=== PATIENT | female | born 1965 | race Caucasian/White ===

== ENCOUNTER → 2019-08-06 | Outpatient (CLI) | payer BC ==
--- NOTE | 2019-08-06 17:20 | RAD ---
Two-view right knee study Clinical indications: Status post right knee replacement. FINDINGS: Total right knee arthroplasty is evident which is well aligned. No acute fracture or lytic process is seen. There is old fragmentation of the anterior tibial tubercle with overlying soft tissue swelling. This could be due to old Freida-Schlatter's disease. IMPRESSION: Total right knee arthroplasty. Electronically signed by: Wai Smiley MD (08/06/2019 5:17 PM) [facility]
== END | disposition home or self-care (01) ==
LOC: DXRAD 11:50
PROVIDERS: ATTEND Orthopaedic Surgery
DX: M79.89 Other specified soft tissue disorders (principal); Z96.651 Presence of right artificial knee joint
CPT/HCPCS: 73560

== ENCOUNTER → 2019-08-06 | Outpatient (CLI) | payer BC ==
--- NOTE | 2019-08-06 12:55 | RAD ---
INDICATION: Osteoporosis screening. Postmenopausal screening COMPARISON: None. TECHNIQUE: Bone densitometry was performed through the lumbar spine and left proximal femur. FINDINGS: Lumbar Spine: L1-4 BMD: 0.93 T-Score: -2.1 Femoral Neck: BMD: 0.668 T-Score: -2.3 IMPRESSION: 1. Lumbar spine falls within the osteopenic range. 2. Femoral neck falls within the osteopenic range. Electronically signed by: Donte Woodall MD (08/06/2019 12:52 PM) [facility] [place]
== END ==
LOC: DXRAD 11:44
PROVIDERS: ATTEND Orthopaedic Surgery
DX: S72.141D Displaced intertrochanteric fracture of right femur, subsequent encounter for closed fracture with routine healing (principal); M85.89 Other specified disorders of bone density and structure, multiple sites; X58.XXXA Exposure to other specified factors, initial encounter; Y93.89 Activity, other specified; Y92.89 Other specified places as the place of occurrence of the external cause; Y99.8 Other external cause status
CPT/HCPCS: 77080

== ENCOUNTER → 2019-09-25 | Outpatient (CLI) | payer BC ==
--- NOTE | 2019-09-25 13:44 | RAD ---
EXAM: Pelvis and right hip, 2 views. HISTORY: Fracture follow-up. COMPARISON: 08/14/2019 FINDINGS: A frontal view the pelvis and frog-leg view of the right hip are obtained. There is internal fixation of a right femoral intertrochanteric fracture in anatomic alignment. IMPRESSION: Internal fixation of a right femoral intertrochanteric fracture. Electronically signed by: Malika Meredith MD (09/25/2019 1:41 PM) [facility]
== END ==
LOC: DXRAD 13:22
PROVIDERS: ATTEND Orthopaedic Surgery
DX: S72.144D Nondisplaced intertrochanteric fracture of right femur, subsequent encounter for closed fracture with routine healing (principal); X58.XXXD Exposure to other specified factors, subsequent encounter
CPT/HCPCS: 73501

== ENCOUNTER → 2019-11-27 | Outpatient (CLI) | payer BC ==
--- NOTE | 2019-11-27 15:01 | RAD ---
EXAM: Pelvis and right hip, 3 views. HISTORY: Pain. COMPARISON: 09/25/2019 FINDINGS: A frontal view the pelvis and 2 views of the right hip are obtained. There is internal fixation of a right femoral intertrochanteric fracture in anatomic alignment. There is increased healing along the prior fracture line compared to the prior study. There is degenerative change at the lumbosacral junction. There is no acute osseous finding. IMPRESSION: Internal fixation of a healed or healing right femoral intertrochanteric fracture. Electronically signed by: Malika Meredith MD (11/27/2019 2:58 PM) [facility]
== END ==
LOC: DXRAD 13:15
PROVIDERS: ATTEND Orthopaedic Surgery
DX: M25.551 Pain in right hip (principal)
CPT/HCPCS: 73502

== ENCOUNTER → 2020-01-29 | Outpatient (CLI) | payer BC ==
--- NOTE | 2020-01-29 17:17 | RAD ---
EXAM: HIP RIGHT 1 VIEW WITH PELVIS. HISTORY: Fracture fixation. COMPARISON: 11/27/2019. FINDINGS: There are changes of gamma nail fixation of a right femoral intertrochanteric fracture in expected alignment. The antegrade intramedullary nail is fixed distally by one screw. The fracture lines are no longer clearly detectable consistent with healing. There is some heterotopic ossification superior to the greater trochanter. Bilateral hip joint spaces appear preserved. A defect along the left superolateral iliac wing may be a bone graft donation site. Surgical suture lines are noted within the pelvis. Osteopenia appears moderate. IMPRESSION: 1. Healing or healed right femoral intertrochanteric fracture status post internal fixation. Electronically signed by: Ilda Linares MD (01/29/2020 5:14 PM) [id number]
== END | disposition home or self-care (01) ==
LOC: DXRAD 12:17
PROVIDERS: ATTEND Orthopaedic Surgery
DX: S72.144D Nondisplaced intertrochanteric fracture of right femur, subsequent encounter for closed fracture with routine healing (principal); M85.88 Other specified disorders of bone density and structure, other site; X58.XXXD Exposure to other specified factors, subsequent encounter
CPT/HCPCS: 73501

== ENCOUNTER 2020-03-01 20:56 | Emergency (ER) | payer BC ==
[~2020-03-01] VITALS: Ht 167.6 cm; Wt 65.9 kg
--- NOTE | 2020-03-01 21:15 | PHYS DOC ---
Past History Past Medical History: Anemia, Fibromyalgia Past Surgical History: Hip Replacement, Knee Replacement, Other General Adult EDM: Chief Complaint: LOWER EXTREMITY EDEMA HPI: HPI: "".. I ve got bad pain in this Rt. hip.. I ve had 7 surgeries... This is been a bad year.... I broke this hip...in Jun.... They put a ton and to nails and it.... But the nails and ton were hurting me so they took him out .. I am still hurting.. but I called tonadonis.. and they said go to [facility] ED and get checked.. but I will never go to [facility] emergency department.. I will go the hospital.. but not the emergency room... but.. I am having to do everything at home... cook all the meals for my .. and son.. take care of the dog... Angle is only one that appreciates me..... We had a green party the other day.. and I had to do all the work for that..Why do I have to take my pants off to look at my leg.. it is only red down.. by my ankle...this is stupid.. that I have to wait and get a US.. or any labs...or xrays...".. " 2020 been a terrible year.. 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 Patient reports Rt lower leg redness and erythema started in the last 24 to 48 hours. Does have a follow-up appointment with . The patient follow s with [facility], discussed patient with Dr. Freeman since he was familiar patient past medical history. Patient denies previous history of DVT. Patient appears angry and depressed about issues with her right hip and the new redness in the right lower leg. Patient's surgical sites appear to be stable and no marked erythema. No cording posterior right thigh. Does have increased ankle edema and erythema in right leg. Distal cap refill is equal to left foot. Review of Systems: Review of Systems: Constitutional: Denies fever or chills Eyes: Denies change in visual acuity HENT: Denies nasal congestion or sore throat Respiratory: Denies cough or shortness of breath Cardiovascular: Denies chest pain or edema GI: Denies abdominal pain, nausea, vomiting, bloody stools or diarrhea : Denies dysuria Musculoskeletal: Complains of right hip pain and new right ankle swelling erythema Integument: Denies rash Neurologic: Denies headache, focal weakness or sensory changes Endocrine: Denies polyuria or polydipsia Lymphatic: Denies swollen glands Psychiatric: Patient anxious, depressed, and angry Heart Score: Risk Factors: Risk Factors: DM, Current or recent (<one month) smoker, HTN, HLP, family history of CAD, obesity. Risk Scores: Score 0 - 3: 2.5% MACE over next 6 weeks - Discharge Home Score 4 - 6: 20.3% MACE over next 6 weeks - Admit for Clinical Observation Score 7 - 10: 72.7% MACE over next 6 weeks - Early Invasive Strategies Family History: Family History: Noncontributory to presentation Current Medications: Current Meds: See nursing for home meds Allergies: Allergies: Allergic to Keflex and chlorhexidine Physical Exam: PE: Constitutional: Moderate acute distress, non-toxic appearance. [] HENT: Normocephalic, atraumatic, bilateral external ears normal, oropharynx moist, no oral exudates, nose normal. [] Eyes: PERRLA, EOMI, conjunctiva normal, no discharge. [] Neck: Normal range of motion, no tenderness, supple, no stridor. [] Cardiovascular:Heart rate regular rhythm, no murmur [] Lungs & Thorax: Bilateral breath sounds equal at apex on auscultation [] Abdomen: Bowel sounds normal, soft, no tenderness, no masses, no pulsatile masses. Mild right lower quadrant discomfort Skin: Warm, dry, no erythema, no rash. Poor turgor. Erythema and right ankle as per HPI Back: No tenderness, no CVA tenderness. [] Extremities: No tenderness, no cyanosis, no clubbing, ROM intact, no edema. Arthritic changes. Pain and right hip and femur recent surgery. Old surgery scars knee. Neurologic: Alert and oriented X 3, moves all extremities on request, does have distal sensory , patient reports no new focal deficits noted. [] Psychologic: Affect normal, judgement normal, mood normal. [] EKG: EKG: [] Radiology/Procedures: Radiology/Procedures: [address] [address] IMAGING REPORT Signed PATIENT: FIDEL ALCANTARA ACCOUNT: [id number] : 1965 LOCATION: ER AGE: 54 SEX: F EXAM STATUS: REG ER ORD. PHYSICIAN: RACHELL FELDER MD REASON: femur PROCEDURE: PELVIS INDICATION: Hip pain COMPARISON: January 29, 2020 IMPRESSION: Pelvis: Single view obtained. Interval removal of intramedullary ton and screw at the right proximal femur. There is some adjacent calcifications within the soft tissues. Focal lucency at the right femoral neck is identified. Could be related to the patient's previously seen fracture but would correlate with symptoms in the region to ensure that there is not a superimposed acute nondisplaced fracture. No evidence of dislocation. Electronically signed by: Katrin Kim MD (03/02/2020 1:02 AM) [id number] DICTATED AND SIGNED BY: KATRIN KIM MD DATE: 03/02/20101 CC: DONNIE JACKSON MD; RACHELL FELDER MD ~ [][address] [address] IMAGING REPORT Signed PATIENT: FIDEL ALCANTARA ACCOUNT: [id number] : 1965 LOCATION: ER AGE: 54 SEX: F EXAM STATUS: REG ER ORD. PHYSICIAN: RACHELL FELDER MD REASON: edema, pain, recent surgery . PROCEDURE: VENOUS LOWER EXTREMITY RIGHT INDICATION: Reason: edema, pain, recent surgery . / Spl. Instructions: / History: COMPARISON: None. TECHNIQUE: Grayscale, color and doppler ultrasound images were obtained of the right lower extremity venous vasculature. RIGHT: No thrombus identified in the common femoral vein, femoral vein, popliteal vein or visualized calf veins. There are some mildly prominent lymph nodes seen in the right groin. Soft tissue edema. IMPRESSION: * No thrombus identified in deep venous system of right lower extremity. Electronically signed by: Katrin Kim MD (03/02/2020 12:56 AM) [id number] DICTATED AND SIGNED BY: KATRIN KIM MD DATE: 03/02/20 0056 CC: DONNIE JACKSON MD; RACHELL FELDER MD ~ Course & Med Decision Making: Course & Med Decision Making Pertinent Labs and Imaging studies reviewed. (See chart for details) Discussed presentation, testing x-rays with . Advised to hold any anticoagulants at this time. Patient has a follow-up in clinic. Continue to follow instructions as per . Dr. Kelley felt current tx plan adequate. Patient call for an earlier appointment for follow-up. Patient take Bactrim DS twice a day. Patient declined to stay for infusion of vancomycin. Risk and benefits discussed. Patient insisting on discharge home. Impression: 1. Rt Hip Pain-recent hip surgery removal of hardware and nails on February 19 2. Right ankle erythema and swelling-appears to be cellulitis 3. Elevated d-dimer 3.64 4. Mild anemia hemoglobin 11 [] Dragon Disclaimer: Dragon Disclaimer: This electronic medical record was generated, in whole or in part, using a voice recognition dictation system. Departure Departure: Disposition: HOME/RESIDENCE PRIOR TO ADM Condition: STABLE Referrals: DONNIE JACKSON MD (PCP) Scripts Sulfamethoxazole/Trimethoprim (BACTRIM DS TABLET) 1 Each Tablet 1 TAB PO BID for cellulitis for 10 Days, #20 TAB 0 Refills Prov: RACHELL FELDER MD 03/02/20 Justification of Admission: Justification of Admission: Justification of Admission Dx: N/A Dragon Disclaimer This chart was dictated in whole or in part using Voice Recognition software in a busy, high-work load, and often noisy Emergency Department environment. It may contain unintended and wholly unrecognized errors or omissions. Dragon Disclaimer This chart was dictated in whole or in part using Voice Recognition software in a busy, high-work load, and often noisy Emergency Department environment. It may contain unintended and wholly unrecognized errors or omissions. RACHELL FELDER MD Mar 01, 2020 21:15
[2020-03-01] MEDS: SMZ/TMP 800/160MG TABLET. PO ONE (23:52)
[2020-03-01] MEDS: IV RINGERS SOLUTION,LACTATED 1,000 ML IV SCH (23:52)
[2020-03-02 00:06] LABS: BASO # 0.1 x10^3/uL (0.0-0.2); BASO % 1 % (0-3); EOS # 0.2 x10^3/uL (0.0-0.7); EOS % 3 % (0-3); HEMATOCRIT 33.4 % (36.0-47.0); LYMPH # 2.7 x10^3/uL (1.0-4.8); LYMPH % 40 % (24-48); MEAN CORPUSCULAR HEMOGLOBIN 32 pg (25-35); MEAN CORPUSCULAR HGB CONC 33 g/dL (31-37); MEAN CORPUSCULAR VOLUME 95 fL (79-100); MONO # 0.7 x10^3/uL (0.0-1.1); MONO % 10 % (0-9); NEUT # 3.1 x10^3uL (1.8-7.7); NEUT % 47 % (31-73); PLATELET COUNT 393 x10^3/uL (140-400); RED CELL DISTRIBUTION WIDTH 13.2 % (11.5-14.5); WHITE BLOOD COUNT 6.7 x10^3/uL (4.0-11.0)
[2020-03-02 00:11] LABS: CREATININE 1.1 mg/dL (0.6-1.0); GFR 51.4; POTASSIUM 4.7 mmol/L (3.5-5.1)
--- NOTE | 2020-03-02 00:59 | RAD ---
INDICATION: Reason: edema, pain, recent surgery . / Spl. Instructions: / History: COMPARISON: None. TECHNIQUE: Grayscale, color and doppler ultrasound images were obtained of the right lower extremity venous vasculature. RIGHT: No thrombus identified in the common femoral vein, femoral vein, popliteal vein or visualized calf veins. There are some mildly prominent lymph nodes seen in the right groin. Soft tissue edema. IMPRESSION: * No thrombus identified in deep venous system of right lower extremity. Electronically signed by: Donte Woodall MD (03/02/2020 12:56 AM) [id number]
[2020-03-02] MEDS: oxyCODONE/APAP 5/325 1 TAB TABLET PO ONE (01:00)
--- NOTE | 2020-03-02 01:05 | RAD ---
INDICATION: Hip pain COMPARISON: January 29, 2020 IMPRESSION: Pelvis: Single view obtained. Interval removal of intramedullary ton and screw at the right proximal femur. There is some adjacent calcifications within the soft tissues. Focal lucency at the right femoral neck is identified. Could be related to the patient's previously seen fracture but would correlate with symptoms in the region to ensure that there is not a superimposed acute nondisplaced fracture. No evidence of dislocation. Electronically signed by: Donte Woodall MD (03/02/2020 1:02 AM) [id number]
[2020-03-02] MEDS ORDERED: SULF1TAB24 PO (01:44)
[2020-03-02 02:00] VITALS: BP 118/91
== END 2020-03-02 01:50 | disposition home or self-care (01) ==
LOC: ER 20:56
DX: M25.551 Pain in right hip (principal); L53.8 Other specified erythematous conditions; R79.1 Abnormal coagulation profile; D64.9 Anemia, unspecified; M79.604 Pain in right leg; M79.7 Fibromyalgia; Z86.2 Personal history of diseases of the blood and blood-forming organs and certain disorders involving the immune mechanism; Z96.649 Presence of unspecified artificial hip joint; Z88.8 Allergy status to other drugs, medicaments and biological substances
CPT/HCPCS: 36415; 72170; 80048; 85025; 85379; 85610; 85730; 93971; 96360; 96361; 99285; J7120

== ENCOUNTER → 2020-07-15 | Outpatient (CLI) | payer BC ==
[~2020-07-15] MED LIST: SULF1TAB24 PO
--- NOTE | 2020-07-15 14:32 | RAD ---
Single AP pelvis and crosstable lateral view of the right hip without comparison for right hip pain. FINDINGS: There is a total right hip prosthesis. No periprosthetic lucency is identified. No fracture or acute osseous abnormality is evident. Post surgical changes are present in the pelvis. IMPRESSION: 1. No acute osseous abnormality. Electronically signed by: Kunal Costa MD (07/15/2020 2:29 PM) [id number]
== END ==
LOC: DXRAD 13:02
PROVIDERS: ATTEND Orthopaedic Surgery
DX: S72.301D Unspecified fracture of shaft of right femur, subsequent encounter for closed fracture with routine healing (principal); X58.XXXD Exposure to other specified factors, subsequent encounter
CPT/HCPCS: 73501

== ENCOUNTER → 2020-10-05 | Outpatient (CLI) | payer BC ==
[2020-10-05 09:12] LABS: BASO # 0.1 x10^3/uL (0.0-0.2); BASO % 1 % (0-3); EOS # 0.1 x10^3/uL (0.0-0.7); EOS % 2 % (0-3); HEMATOCRIT 39.3 % (36.0-47.0); HEMOGLOBIN 13.1 g/dL (12.0-15.5); LYMPH # 2.1 x10^3/uL (1.0-4.8); LYMPH % 40 % (24-48); MEAN CORPUSCULAR HEMOGLOBIN 30 pg (25-35); MEAN CORPUSCULAR HGB CONC 33 g/dL (31-37); MEAN CORPUSCULAR VOLUME 91 fL (79-100); MONO # 0.5 x10^3/uL (0.0-1.1); MONO % 9 % (0-9); NEUT # 2.6 x10^3uL (1.8-7.7); NEUT % 49 % (31-73); PLATELET COUNT 296 x10^3/uL (140-400); RED BLOOD COUNT 4.33 x10^6/uL (3.50-5.40); WHITE BLOOD COUNT 5.4 x10^3/uL (4.0-11.0)
[2020-10-05 09:27] LABS: BILIRUBIN,URINE NEG (NEG); CLARITY,URINE CLEAR; COLOR,URINE YELLOW; GLUCOSE,URINE NEG (NEG)
[2020-10-05 09:28] LABS: NITRITE,URINE NEG (NEG); UROBILINOGEN,URINE 0.2 mg/dL (0.2 mg/dL)
[2020-10-05 09:31] LABS: ALBUMIN 3.9 g/dL (3.4-5.0); ALK PHOS 90 U/L (46-116); ALT (SGPT) 35 U/L (14-59); ANION GAP 8 (6-14); AST (SGOT) 17 U/L (15-37); BLOOD UREA NITROGEN 28 mg/dL (7-20); BUN/CREATININE RATIO 28 (6-20); CALCIUM 9.3 mg/dL (8.5-10.1); CARBON DIOXIDE 27 mmol/L (21-32); CHLORIDE 106 mmol/L (98-107); GFR 57.1; GLUCOSE 104 mg/dL (70-99); POTASSIUM 4.4 mmol/L (3.5-5.1); SODIUM 141 mmol/L (136-145); TOTAL BILIRUBIN 0.4 mg/dL (0.2-1.0); TOTAL PROTEIN 7.7 g/dL (6.4-8.2)
[2020-10-05 09:32] LABS: BACTERIA,URINE FEW /HPF (0-FEW); SQUAMOUS EPITHELIAL CELL,UR FEW /LPF
[2020-10-05 09:35] LABS: C REACTIVE PROTEIN < 0.5 mg/L (0-3.3)
[2020-10-05 10:54] LABS: SEDIMENTATION RATE 7 (0-25)
[2020-10-05 14:50] LABS: FREE T4 1.09 ng/dL (0.76-1.46); THYROID STIM HORMONE (TSH) 0.081 uIU/mL (0.358-3.740)
== END ==
LOC: LAB 08:25
PROVIDERS: ATTEND Family Medicine
DX: S72.031D Displaced midcervical fracture of right femur, subsequent encounter for closed fracture with routine healing (principal); E03.9 Hypothyroidism, unspecified; X58.XXXD Exposure to other specified factors, subsequent encounter; Z96.649 Presence of unspecified artificial hip joint
CPT/HCPCS: 36415; 80053; 80061; 81001; 82306; 84439; 84443; 85025; 85651; 86140; 87077; 87086; 87186

== ENCOUNTER → 2020-10-14 | Outpatient (CLI) | payer BC ==
--- NOTE | 2020-10-14 17:38 | RAD ---
EXAM: AP pelvis, lateral view right hip DATE: 10/14/2020 1:21 PM INDICATION: Reason: DISPLACED FX OF RIGHT FEMUR WITH ROUTINE HEALING / Spl. Instructions: / History: . COMPARISON: 07/15/2020 FINDINGS/ IMPRESSION: 1. Changes of right hip arthroplasty are stable in alignment 07/15/2020 without definite hardware comp lication or superimposed acute fracture. 2. Left hip joint space is preserved. 3. Moderate colonic stool content. Electronically signed by: Gabriel Schmitt MD (10/14/2020 5:36 PM) [id number]
== END ==
LOC: RAD 12:54
PROVIDERS: ATTEND Orthopaedic Surgery
DX: S72.8X1A Other fracture of right femur, initial encounter for closed fracture (principal); X58.XXXA Exposure to other specified factors, initial encounter; Y93.89 Activity, other specified; Y92.89 Other specified places as the place of occurrence of the external cause; Y99.8 Other external cause status
CPT/HCPCS: 73501

== ENCOUNTER → 2020-10-29 | Outpatient (CLI) | payer BC ==
--- NOTE | 2020-10-29 14:24 | RAD ---
NM THREE PHASE BONE SCAN Clinical Indication: Right knee pain post fall June 2019. Total knee replacement October 2018. Comparison: Right knee, 2 views 08/06/2019. TECHNIQUE: Patient is injected with 25.9 mCi of Technetium 99m MDP. Anterior and posterior angiograph ic phase images of the knees acquired. Anterior immediate static image of the knees acquired. After r outine delay, anterior and posterior planar images of the pelvis and bilateral lower extremities acqu ired. Findings: There is hyperemia of the right knee joint on the angiographic phase images. There is persistent increased tracer uptake outlining the knee joint on the immediate static image. On delay image there is mild periprosthesis tracer uptake of the right knee. There is right hip arthroplasty. No abnormal tracer uptake about the prosthesis is seen. Tracer uptak e of the left knee is probably degenerative. Uptake of the left ankle is nonspecific. Tracer uptake i n the pelvis is symmetric. IMPRESSION: There is hyperemia of the right knee joint on the angiographic and blood pool phase images suggesting inflammation. On the delay images, the degree of tracer uptake along the prosthesis is considered no rmal given the time since replacement. Therefore findings are not overly suggestive of loosening. Electronically signed by: David Armijo MD (10/29/2020 2:21 PM) [id number]
== END ==
LOC: NM 08:45
PROVIDERS: ATTEND Orthopaedic Surgery
DX: S72.031D Displaced midcervical fracture of right femur, subsequent encounter for closed fracture with routine healing (principal); X58.XXXD Exposure to other specified factors, subsequent encounter
CPT/HCPCS: 78315; A9503

== ENCOUNTER 2021-06-17 09:08 | Emergency (ER) | payer BC ==
[~2021-06-17] VITALS: Ht 167.6 cm; Wt 69.0 kg
[2021-06-17 09:20] VITALS: BP 105/60
[2021-06-17] MEDS ORDERED: ONDA4TAB12 PO (09:44)
[2021-06-17] MEDS ORDERED: PROM12.554 RC (09:44)
[2021-06-17] MEDS ORDERED: ONDANSETRON ODT 4 MG TAB.RAPDIS PO ONE (09:45)
--- NOTE | 2021-06-17 09:45 | PHYS DOC ---
Past History Past Medical History: Anemia, Fibromyalgia Past Surgical History: Hip Replacement, Knee Replacement, Other Additional Past Surgical Histo: RT FEMUR AND HIP, BONE SPUR FROM SHOULDER Alcohol Use: None Adult General Chief Complaint Chief Complaint: NAUSEA/VOMITING/[facility] HPI Patient is a 55-year-old unvaccinated female presenting for COVID-positive state. She presents for nausea and dry heaving which has been going on for past 24 hours. States she has had decreased p.o. intake as a result. She has classic symptoms that are upper respiratory in nature with ongoing nausea, weakness and fatigue. She has had no fever or other concerning GI symptoms. She has other comorbid conditions that have all been at baseline with no changes in outpatient medications. She reports she was advised by prior physician not to get COVID-19 vaccination which is why she did not get it. She reports she likely caught it from her who had it approximately 1 week prior Review of Systems Review of Systems Fourteen body systems of review of systems have been reviewed. See HPI for pertinent positives and negative responses, other valentin all other systems are negative, non-pertinent or non-contributory Allergies Allergies Allergies Coded Allergies Type Severity Reaction Last Updated Verified cephalexin Allergy Unknown 03/01/20 Yes chlorhexidine Allergy Unknown 03/01/20 Yes Physical Exam Physical Exam General: Appears well, non toxic, and comfortable Skin: Warm, dry. Normal for ethnicity. HEENT: Atraumatic. PERRLA. Rhinorrhea and congestion. Nasal turbinates boggy b/l. Moist mucous membranes. Uvula midline. Maintaining secretions. No phonation changes. Neck: Trachea midline. Normal ROM. No stridor. Respiratory: Normal WOB. CTAB w/o w/r/r. No tachypnea. Cardiovascular: Regular rate and rhythm. Normal peripheral perfusion. Abdomen: Soft. Non tender. No distension. Back: Normal ROM. Musculoskeletal: No swelling or deformity. Neuro: Alert and oriented x 4. MAEE. Lymph: No cervical LAD. Psych: Normal affect and mood. Current Patient Data Vital Signs Vital Signs Date Time Temp Pulse Resp B/P (MAP) Pulse Ox O2 Delivery O2 Flow Rate FiO2 06/17/21 09:20 100.4 84 18 105/60 (75) 95 EKG EKG [] Radiology/Procedures Radiology/Procedures [] Heart Score C/O Chest Pain: No Risk Factors: Risk Factors: DM, Current or recent (<one month) smoker, HTN, HLP, family history of CAD, obesity. Risk Scores: Risk Factors: DM, Current or recent (<one month) smoker, HTN, HLP, family history of CAD, obesity. Course & Med Decision Making Course & Med Decision Making ABCs unremarkable HPI and physical exam nonconcerning for any emergent or surgical issues Unvaccinated patient with known COVID-19 infection is symptomatic with ongoing nausea that improved with ODT Zofran. Joint decision made to discharge home with Zofran and Phenergan suppository for as needed nausea Disclose little indication for further diagnostic work-up in ER setting and/or need for hospitalization given patient's hemodynamic status and mild complaints in an otherwise well-appearing patient Dragon Disclaimer Dragon Disclaimer This electronic medical record was generated, in whole or in part, using a voice recognition dictation system. Departure Departure: Impression: Primary Impression: COVID-19 Disposition: HOME / SELF CARE / HOMELESS Condition: STABLE Referrals: DONNIE JACKSON MD (PCP) Additional Instructions: As discussed prior to ER departure, your vitals and physical exam are nonconce rning for any emergent or surgical issues. There is no indication for further diagnostic work-up or intervention or hospitalization. You were given antinausea medication and subsequently prescribed 2 different the medications that should be used as needed for symptom control. You need to continue providing supportive care practices to yourself at home with close communication with primary care physician regarding your symptoms with ultimate goal of close outpatient follow-up when safe to do so advised. If any concerning signs or symptoms present prior to outpatient follow-up please do not hesitate to come back for repeat evaluation. It was a pleasure to take care of you and I wish you the best going forward Scripts Promethazine Hcl (PROMETHAZINE HCL) 12.5 Mg Supp.rect 1 SUPP RC Q4-6HRS for nausea, #2 SUPP 0 Refills Prov: FAMILIA GOSS DO 06/17/21 Ondansetron (ONDANSETRON ODT) 4 Mg Tab.rapdis 1 TAB PO PRN Q6-8HRS for nausea, #16 TAB Prov: FAMILIA GOSS DO 06/17/21 FAMILIA GOSS DO Jun 17, 2021 09:45
== END 2021-06-17 11:07 | disposition home or self-care (01) ==
LOC: ER 09:08
DX: U07.1 COVID-19 (principal); M79.7 Fibromyalgia; Z86.2 Personal history of diseases of the blood and blood-forming organs and certain disorders involving the immune mechanism; Z88.1 Allergy status to other antibiotic agents; Z88.8 Allergy status to other drugs, medicaments and biological substances
CPT/HCPCS: 99283; Q0162

== ENCOUNTER → 2021-06-27 | Outpatient (CLI) | payer BC ==
[2021-06-17 09:20] VITALS: BP 105/60
[~2021-06-27] MED LIST changes: +ONDA4TAB12 PO; +PROM12.554 RC
--- NOTE | 2021-06-27 16:06 | RAD ---
XR BILATERAL HIP (WITH OR WITHOUT PELVIS) 2 VIEWS_RIGHT History: Reason: HIP PAIN / Spl. Instructions: / History: Technique: AP view the pelvis and 2 additional views of the right hip. Comparison: October 14, 2020 Findings: Right total hip arthroplasty, unchanged compared to prior. Heterotopic ossification adjacent to the r ight hip. Irregularity of the right superior pubic ramus with cortical disruption new compared to briseida or. Possible linear lucency through the inferior pubic ramus. Impression: 1. Irregularity of the right superior pubic ramus and possible lucency through the right inferior pu bic ramus, may represent fractures. Recommend correlation with history of trauma and point tenderness . CT can confirm if persistent clinical concern. Electronically signed by: Mehdi Bhat DO (06/27/2021 4:03 PM) [id number]
--- NOTE | 2021-06-27 16:08 | RAD ---
US EXTREM NONVASCULAR LTD RIGHT History:Reason: RT GROIN PAIN; R/O RT INGUINAL HERNIA / Spl. Instructions: / History: Comparison: None Technique: Sonographic examination of the right inguinal region. Findings: No evidence of inguinal hernia. Small right inguinal lymph nodes benign-appearing. Impression: 1. No ultrasound evidence of abnormality within the right inguinal region. Electronically signed by: Mehdi Bhat DO (06/27/2021 4:06 PM) [id number]
== END ==
LOC: RAD 15:26
PROVIDERS: ATTEND Family Medicine
DX: R59.0 Localized enlarged lymph nodes (principal); Z96.641 Presence of right artificial hip joint
CPT/HCPCS: 73502; 76882

== ENCOUNTER → 2021-08-04 | Outpatient (CLI) | payer BC ==
--- NOTE | 2021-08-04 15:51 | RAD ---
CT LOWER RIGHT EXTREMITY WITHOUT CONTRAST dated 08/04/2021 2:07 PM Indication:Reason: S/P HIP REPLACEMENT, BONE FRAGMENTS, HIP PAIN / Spl. Instructions: / History: Abn ormal radiographs. Comparison: Radiographs of 06/27/2021. Technique: Helical noncontrast images were performed. Sagittal and coronal reconstructions were obtai sebastian. One or more of the following individualized dose reduction techniques were utilized for this examinat ion: 1. Automated exposure control 2. Adjustment of the mA and/or kV according to patient size 3. Use of iterative reconstruction technique Findings: There is some artifact arising from the patient's right hip prosthesis. As well as can be determined, there is no loosening of the components or adjacent fracture. There is a fracture involving the righ t pubic bone near the symphysis with possible early healing. There appears to be mild displacement. A dditional partly healed fractureis seen involving the inferior pubic ramus on the right. No destructi ve process is identified. There is some sclerosis of the right sacral ala that could indicate a heale d fracture. No soft tissue mass or obvious hematoma is seen. IMPRESSION: There appear to be partly healed right pubic fractures. Electronically signed by: Jude Woods Jr., MD (08/04/2021 3:48 PM) [id number]
== END ==
LOC: CT 13:33
PROVIDERS: ATTEND Family Medicine
DX: M25.551 Pain in right hip (principal)
CPT/HCPCS: 73700

== ENCOUNTER → 2021-08-25 | Outpatient (CLI) | payer BC ==
[~2021-08-25] MED LIST changes: +CLIN-95 PO
[2021-08-26 15:28] LABS: FREE T4 1.07 ng/dL (0.76-1.46)
== END ==
LOC: LAB 13:07
PROVIDERS: ATTEND Family Medicine
DX: E03.9 Hypothyroidism, unspecified (principal)
CPT/HCPCS: 84439; 84443

== ENCOUNTER 2021-08-28 02:56 | Emergency (ER) | payer BC ==
[~2021-08-28] VITALS: Ht 167.6 cm; Wt 69.0 kg
[~2021-08-28 02:56] MED LIST changes: -CLIN-95 PO
--- NOTE | 2021-08-28 03:12 | PHYS DOC ---
Past History Past Medical History: Anemia, Fibromyalgia Past Surgical History: Hip Replacement, Knee Replacement, Other Additional Past Surgical Histo: RT FEMUR AND HIP, BONE SPUR FROM SHOULDER Alcohol Use: None Adult General Chief Complaint Chief Complaint: LOWER EXTREMITY SWELLING HPI HPI Patient is a 56-year-old female with a past medical history notable for venous insufficiency who presents with bilateral lower extremity swelling. States that her primary care physician has started her on diuretics for this. Denies any recent travels, traumas, illnesses, fevers, chest pain, shortness of breath, abdominal pain, nausea, vomiting. Denies any hematuria or dysuria. Denies any blood in the stool or diarrhea. States she is making urine and stool normally for her. States she is taking all her medications as prescribed. States she d oes wear her compression stockings sometimes. Review of Systems Review of Systems Review of systems otherwise unremarkable except noted in HPI Allergies Allergies Allergies Coded Allergies Type Severity Reaction Last Updated Verified cephalexin Allergy Unknown 03/01/20 Yes chlorhexidine Allergy Unknown 03/01/20 Yes Physical Exam Physical Exam Constitutional: Well developed, well nourished, no acute distress, non-toxic appearance. [] HENT: Normocephalic, atraumatic, bilateral external ears normal, oropharynx moist, no oral exudates, nose normal. [] Eyes: conjunctiva normal, no discharge. [] Neck: Normal range of motion, no tenderness, supple, no stridor. [] Cardiovascular:Heart rate regular rhythm, no murmur [] Lungs & Thorax: Bilateral breath sounds clear to auscultation [] Abdomen: Bowel sounds normal, soft, no tenderness, no masses, no pulsatile mass es. [] Skin: Warm, dry, no erythema, no rash. [] Back: No tenderness, no CVA tenderness. [] Extremities: Neurovascular exam intact, bilateral lower extremities with 1+ pitting edema, some mild erythema and warmth, circumferential erythema Neurologic: Alert and oriented X 3, normal motor function, normal sensory function, able to sit, stand and walk at baseline, no focal deficits noted. [] Psychologic: Affect normal, judgement normal, mood normal. [] EKG EKG [] Radiology/Procedures Radiology/Procedures [] Heart Score C/O Chest Pain: No Risk Factors: Risk Factors: DM, Current or recent (<one month) smoker, HTN, HLP, family history of CAD, obesity. Risk Scores: Risk Factors: DM, Current or recent (<one month) smoker, HTN, HLP, family history of CAD, obesity. Course & Med Decision Making Course & Med Decision Making Patient is a 56-year-old female who presents with bilateral lower extremity swelling Vital signs notable for mild bradycardia, which patient states her heart rate is usually in the 50s. Physical exam noted above. Started on clindamycin due to concern of patient's for cellulitis. Patient's history and exam suggestive of venous insufficiency Discussed symptom control at home including diet, continuing her diuretics and compression stockings. Advised to follow-up first thing Sunday with her primary care physician to discuss her ED visit Gave return precautions to the ED. Patient grateful, verbalized understanding and agreed with plan of discharge. [] Dragon Disclaimer Dragon Disclaimer This electronic medical record was generated, in whole or in part, using a voice recognition dictation system. Departure Departure: Impression: Primary Impression: Venous insufficiency Additional Impression: Cellulitis Disposition: HOME / SELF CARE / HOMELESS Condition: STABLE Referrals: SINCERE HIGGINS (PCP) Patient Instructions: Cellulitis, Venous Stasis and Chronic Venous Insufficiency Additional Instructions: Thank you for coming into the emergency department tonight and allowing us to take care of you. Please read the attached information carefully to go over things we discussed. As we discussed continue taking your medications including your diuretic as prescribed. Please wear your compression stockings as recommended by your primary care physician and keep your legs elevated as much as possible. Please adjust your diet as we discussed. Please take your antibiotics as prescribed and until gone or until your primary care physician discontinues them. Please follow-up first thing Sunday morning with your primary care physician to update on your ED visit and set up a follow-up as soon as you can. Please come back with new or concerning symptoms as discussed. Scripts Clindamycin Hcl (CLINDAMYCIN HCL) 300 Mg Capsule 1 CAP PO TID for cellulitis for 5 Days, #15 CAP Prov: ANALI FINNEGAN MD 08/28/21 Problem Qualifiers ANALI FINNEGAN MD Aug 28, 2021 03:12
[2021-08-28 03:16] VITALS: BP 105/63
[2021-08-28] MEDS ORDERED: CLIN-95 PO (03:33)
[2021-08-28] MEDS ORDERED: CLINDAMYCIN HCL 150 MG CAPSULE PO ONE (03:45)
== END 2021-08-28 03:47 | disposition home or self-care (01) ==
LOC: ER 02:56
DX: I87.2 Venous insufficiency (chronic) (peripheral) (principal); L03.116 Cellulitis of left lower limb; L03.115 Cellulitis of right lower limb; M79.7 Fibromyalgia; Z86.2 Personal history of diseases of the blood and blood-forming organs and certain disorders involving the immune mechanism; Z88.1 Allergy status to other antibiotic agents; Z88.8 Allergy status to other drugs, medicaments and biological substances
CPT/HCPCS: 99283